=== PATIENT | male | born 1960 | race Caucasian/White ===

== ENCOUNTER 2019-06-04 11:37 | Day surgery (SDC) | payer OTHER ==
[~2019-06-04] VITALS: Ht 182.9 cm; Wt 78.7 kg
[2019-06-04] MEDS ORDERED: ATOR10TA PO (12:12)
[2019-06-04] MEDS ORDERED: METH2.5T PO (12:12)
[2019-06-04] MEDS ORDERED: ADAL40KI SC (12:12)
[2019-06-04] MEDS ORDERED: TAMS-11 PO (12:12)
[2019-06-04] MEDS ORDERED: METF500T17 PO (12:12)
[2019-06-04] MEDS ORDERED: CETI10TA18 PO (12:12)
[2019-06-04] MEDS ORDERED: ATOR40TA PO (12:12)
[2019-06-04] MEDS ORDERED: RANI150C PO (12:12)
[2019-06-04] MEDS ORDERED: ERTA1VIA IV (12:12)
[2019-06-04] MEDS ORDERED: HYDR-3245 PO (12:12)
[2019-06-04] MEDS ORDERED: ONDA4TAB13 SL (12:12)
[2019-06-04] MEDS ORDERED: FOLI-17 PO (12:12)
[2019-06-04] MEDS ORDERED: MELO15TA24 PO (12:12)
[2019-06-04 12:20] VITALS: BP 110/74
[2019-06-04 12:36] VITALS: BP 110/74
[2019-06-04] MEDS ORDERED: MIDAZOLAM 1 MG/ML, 2ML ONE (12:42)
[2019-06-04] MEDS ORDERED: PROPOFOL 50 ML ONE (12:42)
[2019-06-04] MEDS ORDERED: FENTANYL PF 250 MCG/5ML ONE (12:43)
[2019-06-04] MEDS ORDERED: PROPOFOL 10 MG/ML, 20ML ONE ×2 (12:53→13:06)
[2019-06-04 12:54] LABS: ALANINE AMINOTRANSFERASE 106 U/L (12-78); ANION GAP 4 mmol/L (5-15); CALCIUM 8.6 mg/dL (8.5-10.1); CHLORIDE 109 mmol/L (98-107); CREATININE 0.97 mg/dL (0.7-1.3)
[2019-06-04 12:56] LABS: ALKALINE PHOSPHATASE 77 U/L (45-117); BILIRUBIN,TOTAL 0.2 mg/dL (0.2-1.0); TOTAL PROTEIN 6.8 g/dL (6.4-8.2)
[2019-06-04] MEDS ORDERED: MEPERIDINE/PF 25MG/ML,1ML IVPush PRN (13:30)
[2019-06-04] MEDS ORDERED: DIPHENHYDRAMINE 50 MG/ML, 1ML IVPush PRN (13:30)
[2019-06-04] MEDS ORDERED: PROMETHAZINE 25 MG/ML, 1ML IV PRN (13:30)
[2019-06-04] MEDS ORDERED: ONDANSETRON 2MG/ML, 2ML IV PRN (13:30)
[2019-06-04] MEDS ORDERED: EPHEDRINE 50 MG/ML, 1ML IM PRN (13:30)
[2019-06-04] MEDS ORDERED: MIDAZOLAM 1 MG/ML, 2ML IV PRN (13:30)
[2019-06-04] MEDS ORDERED: ACETAMINOPHEN 325 MG TABLET PO PRN (13:30)
[2019-06-04] MEDS ORDERED: ONDANSETRON ODT 8 MG PO PRN (13:30)
[2019-06-04] MEDS ORDERED: FENTANYL PF 100 MCG/2ML IV PRN (13:30)
[2019-06-04] MEDS ORDERED: MORPHINE SULFATE 4 MG/ML, 1ML IVPush PRN (13:30)
[2019-06-04] MEDS ORDERED: DIAZEPAM 5 MG/ML, 2ML IVPush PRN (13:30)
[2019-06-04] MEDS ORDERED: EPHEDRINE 50 MG/ML, 1ML IVPush PRN (13:30)
[2019-06-04] MEDS ORDERED: LABETALOL 5MG/ML, 20ML IV PRN (13:30)
[2019-06-04] MEDS ORDERED: OXYcodone 5 MG/5 ML ORAL.SOL UDC PO PRN (13:30)
== END 2019-06-04 15:50 | disposition home or self-care (01) ==
LOC: OUT 11:37
PROVIDERS: ATTEND Urology
DX: N20.0 Calculus of kidney (principal); N20.1 Calculus of ureter; E11.9 Type 2 diabetes mellitus without complications; E78.00 Pure hypercholesterolemia, unspecified; Z88.8 Allergy status to other drugs, medicaments and biological substances; Z79.899 Other long term (current) drug therapy; Z72.89 Other problems related to lifestyle; Z83.3 Family history of diabetes mellitus; Z79.84 Long term (current) use of oral hypoglycemic drugs; Z79.4 Long term (current) use of insulin
CPT/HCPCS: 52352; 74018; 80053; 82360; 82962; 88300; 93005; C1769; J2250; J2704; J3010; 76000